=== PATIENT | male | born 1965 | race Hispanic/Latino ===

== ENCOUNTER 2017-05-20 03:26 | Emergency (ER) | payer BC ==
[2017-05-20 03:43] VITALS: TEMP 98.3; O2SAT 98
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
[2017-05-20 06:08] VITALS: BP 132/83; PULSE 86; RESP 16
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
== END 2017-05-20 06:08 | disposition home or self-care (01) ==
LOC: H.ER 03:26
DX: S00.83XA Contusion of other part of head, initial encounter (principal); S00.212A Abrasion of left eyelid and periocular area, initial encounter; Y09 Assault by unspecified means; Y92.511 Restaurant or cafe as the place of occurrence of the external cause; S09.90XA Unspecified injury of head, initial encounter